=== PATIENT | male | born 1945 | race Caucasian/White ===

== ENCOUNTER 2017-01-16 12:04 | Observation (INO) | payer MEDICARE, OTHER ==
[2017-01-16 12:45] LABS: BLOOD UREA NITROGEN 15 mg/dL (9-20); CHLORIDE 106 mmol/L (98-107); EST GLOMERULAR FILTRATION RATE > 60 mL/min; GLUCOSE 106 mg/dL (70-100); MAGNESIUM 1.8 mg/dL (1.6-2.3); POTASSIUM 4.1 mmol/L (3.5-5.1); SODIUM 140 mmol/L (137-145)
[2017-01-16] MEDS ORDERED: KETOROLAC TROMETHAMINE 30 MG/ML VIAL ONE (12:51)
[2017-01-16 12:58] LABS: HEMATOCRIT 42.6 % (42.0-54.0); MEAN CORPUS. HGB CONCENTRATION 32.8 g/dL (32.0-36.0); MEAN CORPUSCULAR HEMOGLOBIN 32.3 pg (29.0-35.0); PLATELET COUNT 235 X 10^3uL (130-440); RED BLOOD COUNT 4.33 X 10^6uL (4.20-6.10); WHITE BLOOD COUNT 10.2 X 10^3uL (3.9-10.7)
[2017-01-16 12:59] LABS: LYMPHOCYTE % (Manual) 18 % (20.0-40.0); MONOCYTE % (Manual) 8 % (2.0-10.0); NEUTROPHIL % (Manual) 74 % (54.0-75.0); PLATELET ESTIMATE ADEQUATE
[2017-01-16 13:01] LABS: TROPONIN I < 0.012 ng/mL (0.00-0.034)
--- NOTE | 2017-01-16 14:59 | CT REPORT ---
HISTORY: Acute onset chest pain. Elevated d-dimer. Evaluate for pulmonary embolism. PROCEDURE: Contiguous axial images were acquired from the thoracic inlet to the upper abdomen following bolus ad ministration of IV contrast using a CT Angiogram protocol. The patient received 98 cc IV contrast. Th e necessary coronal reformatted and 3-D reconstructed images were also performed. This examination wa s performed using automated exposure control, adjustment of mA or kV according to patient size, and/o r use of iterative reconstruction technique. FINDINGS: Comparison: Comparison is made with chest radiograph of same date. CT ANGIOGRAM: The current study is acquired with good bolus administration. There are no filling defects involving the main pulmonary artery to the level of the lobar and segmental vessels. Mediastinum: Mediastinum shows moderate atherosclerotic disease involving the aortic arch and great vessels. There is no mediastinal lymphadenopathy or mass. There is no intimal flap. Pericardial thickening versus s mall pericardial effusion is noted. Postoperative change is noted consistent with sternotomy. Lungs: Lungs show a small layering left pleural effusion with associated basilar consolidation versus atelec tasis. There is no pneumothorax. Incidentally noted is a calcified 7 mm left lower lobe pulmonary nod ule, best demonstrated on series 6 image 40, consistent with benign granuloma. Upper abdomen: Upper abdomen is within normal limits for age. Chest wall: Chest wall shows no axillary lymphadenopathy. Osseous structures show postoperative change consistent with sternotomy. Degenerative change with anterior osteophyte formation involves the thoracic spine. The left lateral chest wall is not included entirely in the [id number]. 3D Reconstructions: 3-D reconstructions show the pulmonary arteries to be normal in caliber. Results were communicated to the referring care provider concerning these findings at the time of dic tation. IMPRESSION: 1. No acute pulmonary embolism. 2. Left pleural effusion with basilar consolidation. 3. Pericardial thickening versus small pericardial effusion. 4. Incidental senescent and iatrogenic change as above. Final Electronic Signature: This report was electronically signed by Kevin Bello MD on 01/16/2017 2 :57 PM. [facility] / / CURRENT [phone]
[2017-01-16] MEDS ORDERED: HOME MEDICATION LIST NEEDED 1 EA EACH MC ONE (15:10)
[2017-01-16] MEDS ORDERED: NORMAL SALINE ADDVANTAGE 100 ML IV ONE ×2 (15:54→16:00)
[2017-01-16] MEDS ORDERED: CEFTRIAXONE SODIUM ONE (15:54)
[2017-01-16] MEDS ORDERED: cefTRIAXone SODIUM 1,000 MG/10 ML VIAL ONE (16:00)
--- NOTE | 2017-01-16 16:08 | ER NURSING DOCUMENTATION ---
Nurse's Notes [facility] Name:Saeid Conway Age:71 yrs Sex:Male :1945 Arrival Date:01/16/2017 Time:12:04 BedTrauma-C Private MD:Vinicio Eckert Diagnosis:Pneumonia Bacterial;Pleural Effusion, Unspecified;Hypoxia Presentation: 01/16 12:12 Acuity: ALVARO 2 12:20 Presenting complaint: Patient states: Pt began having body aches last night along with rh SOB, lightheadedness and some chest pain. Pt was being seen in the clinic downstairs and was sent up by Dr Carter for an abnormal EKG. Transition of care: [facility]. 12:20 Method Of Arrival: Private Vehicle rh 16:05 AIR CAT ACTIVATION no. Asprin Given Given in ED. Triage Assessment: 12:25 General: Appears in no apparent distress, Behavior is cooperative. General: Reports fatigue for. Pain: Denies pain. EENT: Oral mucosa is moist. Neuro: Level of Consciousness is awake, alert, obeys commands. Cardiovascular: Capillary refill < 3 seconds. Respiratory: Airway is patent Respiratory effort is even, unlabored, Respiratory pattern is regular, symmetrical, Reports shortness of breath cough that is. GI: Abdomen is non- distended Abd is soft and non tender Reports nausea. : No deficits noted. Derm: Skin is intact, is healthy with good turgor, Skin is pink, warm & dry. Historical: - Allergies: No known drug Allergies; - Home Meds: 1. ibuprofen 200 mg oral cap 1 cap every 4 hours as needed 2. Cialis 10 mg oral tab 1 tab once daily 3. lisinopril 10 mg oral tab 1 tab once daily 4. Toprol XL 50 mg oral Tb24 1 tab once daily 5. atorvastatin 20 mg oral tab 1 tab once daily 6. sulfasalazine 500 mg oral tab 1 tab 4 times per day after meals - PMHx: AAA; Hypertension; HIGH CHOLESTEROL; - PSHx: OPEN REPAIR OF AAA; - Tetanus: < 10 years. - Ebola Screening: : Patient negative for fever greater than or equal to 101.5 degrees Fahrenheit, and additional compatible Ebola Virus Disease symptoms. - Immunization history: Flu Vaccine < 1 year. - Social history: Smoking status: Patient states was never smoker of tobacco. Screenin:26 Infectious Disease Risk None. Abuse screen: Denies threats or abuse. Denies injuries rh from another. Nutritional screening: No deficits noted. Assessment: 12:26 See Triage Assessment done by same RN. rh Vital Signs: 12:06 BP 121 / 84; Pulse 116 MON; Resp 18; Temp 100.3(O); Pulse Ox 91% ; Weight 81.19 kg; rh Height 71 in. (180.34 cm); Pain 3/10; 12:38 BP 136 / 71; Pulse 102; Resp 14; Pulse Ox 96% on 2 lpm NC; Pain 1/10; rh 13:00 BP 117 / 70 (auto/); rh 13:01 Pulse 105 MON; Resp 19; Pulse Ox 96% ; rh 13:30 BP 119 / 71 (auto/); rh 13:31 Pulse 98 MON; Resp 12; Pulse Ox 95% ; rh 14:00 BP 120 / 65 (auto/); rh 14:01 Pulse 93 MON; Resp 18; Pulse Ox 97% ; rh 14:56 Pulse 88 MON; Resp 21; Pulse Ox 94% ; rh 15:00 BP 120 / 59 (auto/); rh 15:30 BP 117 / 64 (auto/); rh 15:31 Pulse 89 MON; Resp 17; Pulse Ox 94% ; rh 12:06 Body Mass Index 24.97 (81.19 kg, 180.34 cm) rh ED Course: 12:06 EKG done. (by ED staff). Reviewed by Chintan Medrano MD. rh 12:07 Patient arrived in ED. jl 12:07 Vinicio Eckert is Private Physician. jl 12:08 Inserted peripheral IV: 20 gauge in left antecubital area and blood collected. Oxygen rh Oxygen administration via nasal cannula @ 2L/min. 12:12 Triage completed. rh 12:15 Notified ED Physician of patient's arrival and chief complaint. Dr. Medrano notified. rh 12:15 final finisher forging dies on. Pulse ox on. NIBP on. rh 12:21 Chintan Medrano MD is Attending Physician. 12:27 Valuables Remains with patient Patient has correct armband on for positive rh identification. Placed in gown. Bed in low position. Call light in reach. Side rails up X 1. 12:35 Phillip Flowers RN is Primary Nurse. tg 13:52 Notified ED physician, critical lab value for DDIMER with actual value of 326 New rh orders [facility] 15:15 Marcy Lockwood MD is Admitting Physician. ricardo 15:20 Inserted peripheral IV: 20 gauge in right forearm. tg Administered Medications: 12:35 Drug: Aspirin Chewable Tablet 324 mg; Route: PO; tg 13:12 Follow up: Response: No adverse reaction rh 12:38 Drug: Toradol 30 mg; Route: IVP; Site: left antecubital; rh 13:12 Follow up: Response: No adverse reaction rh 15:46 Drug: Rocephin 1 grams; Route: IVPB; Site: right forearm; rh 16:08 Follow up: IV Status: Infusion continued upon admission rh Outcome: 15:15 Decision to Admit by Provider. 16:05 Admitted to Med/surg accompanied by nurse, via stretcher, with oxygen, with chart. 16:05 Condition: improved 16:05 Discharge Assessment: Patient awake, alert and oriented x 3. No cognitive and/or functional deficits noted. Patient verbalized understanding of disposition instructions. 16:05 Instructed on need to admit 16:07 Patient left the ED. rh Signatures: Phillip Flowers RN RN tg Meyer, John, MD MD jm Norman, David dnn Hofsess, Rachel rh Lietz, Jeff jl
--- NOTE | 2017-01-16 16:08 | ER PHYSICIAN DOCUMENTATION ---
Physician Documentation [facility] Name:Saeid Conway Age:71 yrs Sex:Male :1945 Arrival Date:01/16/2017 Time:12:04 BedTrauma-C Private MD:Vinicio Eckert ED, John Disposition: 01/16/17 15:15 Admit ordered for Marcy Lockwood. Preliminary diagnosis are Pneumonia Bacterial, Pleural Effusion, Unspecified, Hypoxia. - Bed requested for Medical/Surgical. - Condition is Fair. - Problem is new. - Symptoms are unchanged. 23 HR OBS Yes HPI: 01/16 13:43 This 71 yrs old Male presents to ER via Private Vehicle with complaints of jm Chest Pain > 30 y/o, Fever. 13:43 The patient or guardian reports chest pain that is located primarily in the chest jm diffusely. Onset: today. The pain does not radiate. There has been no movement of pain. Associated signs and symptoms: Pertinent positives: dizziness, lightheadedness, nausea. Associated signs and symptoms: Pertinent positives: cough. The chest pain is described as dull. Duration: The patient or guardian reports a single episode, that is still ongoing. Severity of pain: in the emergency department the pain is unchanged. The patient has not experienced similar symptoms in the past. The patient has not recently seen a physician. Pt sent up by clinic for eval of CP and dizziness. Pt feels run down and generally fatigued. Pt has slight cough,, but mostly c/o of body aches, and malaise. . Historical: - Allergies: No known drug Allergies; - Home Meds: 1. ibuprofen 200 mg oral cap 1 cap every 4 hours as needed 2. Cialis 10 mg oral tab 1 tab once daily 3. lisinopril 10 mg oral tab 1 tab once daily 4. Toprol XL 50 mg oral Tb24 1 tab once daily 5. atorvastatin 20 mg oral tab 1 tab once daily 6. sulfasalazine 500 mg oral tab 1 tab 4 times per day after meals - PMHx: AAA; Hypertension; HIGH CHOLESTEROL; - PSHx: OPEN REPAIR OF AAA; - Tetanus: < 10 years. - Ebola Screening: : Patient negative for fever greater than or equal to 101.5 degrees Fahrenheit, and additional compatible Ebola Virus Disease symptoms. - Immunization history: Flu Vaccine < 1 year. - Social history: Smoking status: Patient states was never smoker of tobacco. ROS: 13:45 Constitutional: Negative for body aches, chills, fatigue, malaise. jm 13:45 ENT: Negative for rhinorrhea, sinus congestion, sinus pain, sore throat. 13:45 Cardiovascular: Positive for chest pain. 13:45 Respiratory: Positive for cough, Negative for shortness of breath. 13:45 Abdomen/GI: Negative for abdominal pain, nausea, vomiting, diarrhea. 13:45 MS/extremity: Negative for swelling. 13:45 Skin: Negative for swelling. 13:45 Neuro: Positive for dizziness, Negative for headache. 13:45 Psych: Negative for anxiety, depression. 13:45 All other systems are negative. Exam: 13:46 Constitutional: The patient appears alert, awake. jm 13:46 Eyes: Periorbital structures: appear normal, Conjunctiva: normal. 13:46 ENT: Nose: is normal, Mouth: is normal. 13:46 Neck: ROM/movement: is normal, Lymph nodes: no appreciated lymphadenopathy. 13:46 Cardiovascular: Rate: tachycardic, Rhythm: regular. 13:46 Respiratory: Respirations: normal, Breath sounds: are normal. 13:46 Abdomen/GI: Bowel sounds: normal, Palpation: abdomen is soft and non-tender. 13:46 Musculoskeletal/extremity: DVT Exam: No signs of deep vein thrombosis. Calves: are non-tender, have equal circumference. 13:46 Neuro: Mentation: is normal, Memory: is normal. 13:46 Psych: Behavior/mood is pleasant, cooperative, Affect is calm. Vital Signs: 12:06 BP 121 / 84; Pulse 116 MON; Resp 18; Temp 100.3(O); Pulse Ox 91% ; Weight 81.19 kg; rh Height 71 in. (180.34 cm); Pain 3/10; 12:38 BP 136 / 71; Pulse 102; Resp 14; Pulse Ox 96% on 2 lpm NC; Pain 1/10; rh 13:00 BP 117 / 70 (auto/); rh 13:01 Pulse 105 MON; Resp 19; Pulse Ox 96% ; rh 13:30 BP 119 / 71 (auto/); rh 13:31 Pulse 98 MON; Resp 12; Pulse Ox 95% ; rh 14:00 BP 120 / 65 (auto/); rh 14:01 Pulse 93 MON; Resp 18; Pulse Ox 97% ; rh 14:56 Pulse 88 MON; Resp 21; Pulse Ox 94% ; rh 15:00 BP 120 / 59 (auto/); rh 15:30 BP 117 / 64 (auto/); rh 15:31 Pulse 89 MON; Resp 17; Pulse Ox 94% ; rh 12:06 Body Mass Index 24.97 (81.19 kg, 180.34 cm) MDM: 12:20 Patient medically screened. 15:13 Differential diagnosis: acute pericarditis, anxiety, chest wall pain, pneumonia, jm pulmonary embolus, stable angina, thoracic aortic disection. Patient took aspirin. Data reviewed: vital signs, nurses notes, old medical records, lab test result(s), EKG, radiologic studies, and as a result, I will admit patient. Test interpretation: by ED physician or midlevel provider: plain radiologic studies, ECG. Counseling: I had a detailed discussion with the patient and/or guardian regarding: the historical points, exam findings, and any diagnostic results supporting the discharge/admit diagnosis, lab results, radiology results, the need for further work-up and treatment in the hospital. ECG:. Medication response: The patient's symptoms have improved, Physician consultation: Marcy Lockwood MD regarding admission, and will see patient shortly, later today. Admission orders: after a detailed discussion of the patient's condition and case, the admit orders are written by me. ED course: Pt found to have a PNA w underlying pleural effusion. Blood clx taken. Pt given rocephin and azithro. Pt will need admission as his 02 is 84% when walking and 87% while resting. Dr. Lockwood will see later this afternoon. . 01/16 13:00 Order name: CBC W/ MANUAL DIFFERENTIAL [facility] 01/16 15:51 Interpretation: Normal. 01/16 13:01 Order name: BASIC METABOLIC PANEL [facility] 01/16 13:01 Order name: MAGNESIUM [facility] 01/16 13:01 Order name: TROPONIN I [facility] 01/16 15:51 Interpretation: Normal. 01/16 13:52 Order name: DDIMER [facility] 01/16 15:51 Interpretation: Abnormal: DDIMER 326. 01/16 15:45 Order name: BNP,NT-PRO [facility] 01/16 16:56 Order name: HEPATIC PANEL [facility] 01/16 19:57 Order name: HEPATIC PANEL [facility] 01/16 19:59 Order name: TROPONIN I [facility] 01/17 06:59 Order name: BASIC METABOLIC PANEL [facility] 01/17 07:22 Order name: TROPONIN I [facility] 01/17 10:19 Order name: CBC AUTO DIF, MDIF/RMOR IF IND [facility] 01/17 10:46 Order name: ERYTHROCYTE SEDIMENTATION RATE [facility] 01/17 10:54 Order name: CREATINE KINASE [facility] 01/17 16:33 Order name: BLOOD CULTURE [facility] 01/17 16:33 Order name: BLOOD CULTURE [facility] 01/16 14:59 Order name: CAT SCAN; CHEST ANGIO [id number]; Complete Time: 15:51 [facility] 01/16 16:23 Order name: CXR 2V [id number] [facility] 01/16 12:17 Order name: 12-lead EKG; Complete Time: 12:18 01/16 12:17 Order name: Iv Saline Lock; Complete Time: 12:18 01/16 12:17 Order name: Place Patient On Monitor; Complete Time: 12:18 01/16 12:17 Order name: Pulse Ox Continuous; Complete Time: 12:18 rh EC:13 Rhythm is regular. QRS [place] is Normal. QRS interval is normal. No Q waves. T waves are jm Normal. No ST changes noted. Dispensed Medications: 12:35 Drug: Aspirin Chewable Tablet 324 mg; Route: PO; tg 13:12 Follow up: Response: No adverse reaction rh 12:38 Drug: Toradol 30 mg; Route: IVP; Site: left antecubital; rh 13:12 Follow up: Response: No adverse reaction rh 15:46 Drug: Rocephin 1 grams; Route: IVPB; Site: right forearm; rh 16:08 Follow up: IV Status: Infusion continued upon admission rh Signatures: Phillip Flowers RN RN tg Meyer, John, MD MD jm Hofsess, Rachel rh
[2017-01-16 16:13] LABS: ALBUMIN 4.7 g/dL (3.5-5.0); ALKALINE PHOSPHATASE 54 U/L (38-126); ALT 32 U/L (21-72); AST 34 U/L (17-59); BILIRUBIN, TOTAL 0.7 mg/dL (0.2-1.3); TOTAL PROTEIN 8.1 g/dL (6.3-8.2)
--- NOTE | 2017-01-16 16:21 | RADIOLOGY REPORT ---
HISTORY: Chest pain. COMPARISON: None. FINDINGS: 2 views of the chest obtained. Postoperative changes of previous median sternotomy and cardiac surgery are noted. There is a small e lectronic module projected over the left pulmonary artery. The cardiomediastinal silhouette is not en larged. Trachea is midline. Aortic knob is not enlarged. Pulmonary vascularity is within normal limit s. There is calcified left hilar lymph node. Trachea is midline. Lungs are adequately aerated. No confluent infiltrate or consolidation. No pneumothorax or pleural ef fusion. The thoracic vertebral body heights are maintained. No acute compression deformity. IMPRESSION: 1. Postoperative changes of previous median sternotomy and cardiac surgery. 2. No evidence of congestive heart failure. 3. Calcified left hilar lymph nodes consistent with antecedent granulomatous disease. 4. No acute infiltrate. Final Electronic Signature: This report was electronically signed by Saeid Machado MD on 01/16/2017 4: 19 PM. [facility] / / [facility] [phone]
[2017-01-16] MEDS ORDERED: FUROSEMIDE 20 MG/2 ML VIAL IV SCH (16:30)
[2017-01-16] MEDS ORDERED: AZITHROMYCIN 500 MG in NORMAL SALINE 250 ML IV SCH (17:00)
[2017-01-16] MEDS: GUAIFENESIN ER 600 MG TABLET PO SCH (18:15)
[2017-01-16] MEDS: ACETAMINOPHEN 325 MG TABLET PO PRN (18:15)
[2017-01-16] MEDS ORDERED: SUMATRIPTAN 50 MG TABLET PO PRN (18:27)
[2017-01-16 19:50] LABS: ALBUMIN 4.5 g/dL (3.5-5.0); ALKALINE PHOSPHATASE 54 U/L (38-126); ALT 32 U/L (21-72); AST 27 U/L (17-59); BILIRUBIN, TOTAL 0.7 mg/dL (0.2-1.3); TOTAL PROTEIN 7.6 g/dL (6.3-8.2)
[2017-01-16] MEDS: SULFASALAZINE PO SCH (20:28)
[2017-01-16] MEDS ORDERED: LEVETIRACETAM 500 MG TABLET PO SCH (21:00)
[2017-01-16] MEDS ORDERED: IBUPROFEN 200 MG TABLET PO SCH (21:00)
[2017-01-16] MEDS ORDERED: ATORVASTATIN CALCIUM 10 MG TABLET PO SCH (21:00)
[2017-01-16] MEDS ORDERED: ZOLPIDEM TARTRATE 5 MG TABLET PO SCH (21:00)
[2017-01-17] MEDS: GUAIFENESIN ER 600 MG TABLET PO SCH (06:30)
[2017-01-17 06:44] LABS: BLOOD UREA NITROGEN 22 mg/dL (9-20); CALCIUM 9.4 mg/dL (8.4-10.2); CHLORIDE 104 mmol/L (98-107); EST GLOMERULAR FILTRATION RATE > 60 mL/min; GLUCOSE 76 mg/dL (70-100); POTASSIUM 4.8 mmol/L (3.5-5.1); SODIUM 141 mmol/L (137-145)
[2017-01-17 06:47] VITALS: RESP 12
[2017-01-17] MEDS: ACETAMINOPHEN 325 MG TABLET PO PRN ×2 (07:33→13:14)
--- NOTE | 2017-01-17 07:52 | HISTORY & PHYSICAL ---
History of Present Illness (Marcy Lockwood MD; 01/16/2017 7:17 PM) Patient words: acute fatigue and cardiac history. This am achy all over. The patient is a 71 year old male who presents with fatigue. He has a history of hypertension, hyperlipidemia, aortic valve replacement, and thoracic aortic aneurysm repair who presented to the office today with a 5 day history of extreme exhaustion and a 2-3 day history of fevers, chills, sweats, myalgias, and a dry cough. No runny nose. He has had shortness of breath. He complained of chest pain and tightness, especially with movement last night in bed without radiation. He states that now in the hospital, his chest pain has resolved. No sore throat. No ear pain no abdominal pain. No nausea, vomiting diarrhea. No prior history of pneumonia. No prior history of congestive heart failure or pleural effusions. He is not on home oxygen. Problem List/Past Medical (Marcy Lockwood MD; 01/16/2017 7:24 PM) Patent foramen ovale08/2015: small. Surgical repair not indicated. Aortic valvular [id number]/2016. He is unclear if it was aortic regurgitation or aortic stenosis. Status post aortic valve replacement August 2015. Thoracic aortic [id number]/2016. He is status post open thoracic aortic aneurysm repair. Seizure Disorder (G40.909)10/2016 Diagnosed October 2016 with abnormal EEG. Unknown seizure type. Migraine, Classical (G43.109) HTN (I10) Hyperlipidemia (272.4) (E78.5) Allergies (Marcy Lockwood MD; 01/16/2017 7:31 PM) NKA Family History (Marcy Lockwood MD; 01/16/2017 7:34 PM) Father age 77 congestive heart failure, skin cancer. Mother 69 breast cancer, CVA. Brother 1 64 pancreatic cancer. Brother 2 Healthy. Social History (Marcy Lockwood MD; 01/16/2017 7:33 PM) Marital status Re-. Second marriage. Jun. Number of Children: 4. 5 grandchildren. Current work status Retired. [employer]. Alcohol use 1-2 drinks per day. Tobacco use Former smoker. Briefly smoked in college. Medication History (Marcy Lockwood MD; 01/16/2017 7:30 PM) Aspirin (81MG Tablet DR, 1 Oral daily) Active. Atorvastatin Calcium (20MG Tablet, Oral at bedtime) Active. Keppra (500MG Tablet, Oral at bedtime) Active. Toprol XL (50MG Tablet ER 24HR, Oral at bedtime) Active. Multivitamin Adults (1 Oral daily) Active. SulfaSALAzine (500MG Tablet, 4 Oral two times daily) Active. SUMAtriptan Succinate (50MG Tablet, 1 Oral As needed for migraine) Active. Past Surgical History (Marcy Lockwood MD; 01/16/2017 7:27 PM) Status post back surgery Secondary to ruptured discs. TAA open [id number]/2016 Aortic valve pwshye50/2016 Right inguinal hernia repair Review of Systems (Marcy Lockwood MD; 01/16/2017 7:42 PM) As above. He states that he had had episodes of lightheadedness and dizziness with extreme fatigue for several months. He was seen by cardiology and had a Holter monitor placed which was negative. He then had an implantable monitor placed for 1 year which was also negative. He was then sent to neurology. EEG was quite abnormal. He was at high risk for seizures and Keppra was started. With these episodes of extreme fatigue, he also had increased frequency of his migraines, especially the auras. His neurologist was hoping that the Keppra would treat both the seizures and migraines. However, he still continues to have 4-5 migraines with aura each month. His migraine auras tend to mostly be on the left side. He states he has never had any head imaging. He had a normal heart catheterization prior to his abdominal aortic aneurysm and aortic valve replacement in August 2015. He denies any unintentional weight loss. He has had chronic fatigue since his chest surgeries. No edema. No PND. No orthopnea. He has never had any known seizures. Data: CBC with white blood cell count 10.2. Hemoglobin 14.0, hematocrit 42.6. Platelets 235. D-dimer 326. Basic metabolic panel unremarkable. Troponin negative. BNP 252. LFTs normal. EKG sinus tachycardia 110 left axis deviation nonspecific intraventricular block. Abnormal EKG. Chest x-ray: Postoperative changes. No congestive heart failure. Calcified left hilar lymph nodes consistent with antecedent granulomatous disease. No acute infiltrate. CT angiogram chest: No acute pulmonary embolism. Left pleural effusion with bibasilar consolidation. Pericardial thickening versus small pericardial effusion. Incidental senescent and iatrogenic changes. Vitals (Hailey Fournieryessi Barahona; 01/16/2017 11:37 AM) 01/16/2017 11:37 AM Pulse: 128 (Regular) P.OX: 84% (Room air) just walking to the exam room 01/16/2017 11:35 AM Weight: 179 lb Height: 71in Body Surface Area: 2.01 m Body Mass Index: 24.97 kg/m Temp.: 100.3F(Temporal) Pulse: 120 (Regular) Resp.: 20 (Unlabored) P.OX: 90% (Room air) BP: 108/64 (Sitting, Left Arm, Standard) Physical Exam (Marcy Lockwood MD; 01/16/2017 7:37 PM) The physical exam findings are as follows: Note:General: Awake, alert, in no respiratory distress. HEENT: Atraumatic normocephalic, pupils equal round react to light, extraocular movements intact, sclerae clear. TMs clear. Nares boggy and congested. No bleeding. Oropharynx clear. No exudate or lesions. Neck: Supple, no JVD, no carotid bruits, no lymphadenopathy, no meningismus. Chest: Well-healed midsternal incisional scar. Lungs: Rales left base. Otherwise fairly good aeration throughout and clear. Heart: Distant, regular rate and rhythm without any murmurs rubs or gallops. Abdomen: Soft, nontender, nondistended, good bowel sounds, no masses or hepatosplenomegaly. Extremities: Nontender, no cyanosis, no clubbing, no edema. No palpable cords. Negative Homans. Good dorsalis pedis and posterior tibial pulses. Neurological: Awake, alert, oriented 3, cranial nerves II through XII grossly intact no focal deficits, motor, sensation, and DTRs intact. Assessment & Plan (Marcy Lockwood MD; 01/16/2017 7:47 PM) Pneumonia, bacterial (J15.9) Impression: Even though chest x-ray and CT angiogram did not show pneumonia, he clinically appears to have pneumonia with fevers, chills, sweats, and productive cough. Blood cultures 2 were drawn. Will attempt sputum culture and Gram stain. Continue Rocephin and azithromycin. Oxygen. Incentive spirometer. Respiratory therapy consult. He was admitted to observation. Anticipate discharge tomorrow. Full cor. Pleural effusion, left (J90) Impression: He is responding well to diuresis. We have discussed the risks of unilateral pleural effusion be related to potential underlying malignancy. No mass or lymph nodes are seen on CT angiogram chest. I recommended close follow- up as an outpatient when he goes back on the [place]. I suspect we will not repeat imaging unless his condition worsens as he may be able to be discharged tomorrow. Abnormal EKG (R94.31) Impression: He has an abnormal EKG. I do not have any prior EKGs to compare to. His initial troponin is negative. Repeat 2 more sets of troponin levels. Repeat EKG in the morning. Cardiology consultation. Check echocardiogram. Telemetry. He has had a prior normal cardiac catheterization August 2015. He does not have a known underlying history of congestive heart failure. Hypoxemia (R09.02) Impression: Continue oxygen to keep saturations above 90%. He only smoked briefly in college. No known underlying respiratory diseases. Essential hypertension (I10) Impression: His blood pressures have been stable since admission. Continue metoprolol. Hyperlipidemia, acquired (E78.5) Impression: Continue atorvastatin. Signed by Marcy Lockwood MD (01/16/2017 7:48 PM) CC: Dr. Rico Iniguez. SIRENA
[2017-01-17] MEDS: SULFASALAZINE PO SCH (08:35)
--- NOTE | 2017-01-17 08:38 | PROGRESS NOTE: IM SOAP ---
IM: PN Subjective General: fatigue (His biggest complaint is fatigue. ), no confusion, no good appetite, no diaphoresis, no fever, no chills HEENT: headache (Minor H/As, but no migraines. ) Cardiovascular: no chest pain (Resolved with no recurrence.), no palpitations, no dizziness Respiratory: cough (Minimal. ), no sputum, no wheeze, no SOB Gastrointestinal: no abdominal pain, no nausea, no vomiting Genitourinary: no flank pain Musculoskeletal: no pain, no swelling Neurological: headache (Mild as above.) IM: PN Objective Exam - I&O/Vital Signs I&O: Intake & Output 01/16/17 01/17/17 01/17/17 21:59 05:59 13:59 Intake Total 620 100 Output Total 800 470 Balance -180 -370 Weight 79.832 kg Intake: IV 300 Right Forearm 300 Oral 320 100 Output: Urine 800 470 Other: Urine Appearance Clear Urine Color Yellow Stool Characteristics Soft Voiding Method Urinal Urinal Vital Signs: Last Vital Signs Temp 37.0 C 01/17/17 06:45 Pulse 88 01/17/17 06:55 Resp 12 01/17/17 06:45 BP 128/71 01/17/17 06:45 Pulse Ox 95 01/17/17 06:45 Oxygen Flow Rate 2 Oxygen Delivery Method Nasal Cannula - Constitutional General appearance: Present: average body habitus, cooperative. Absent: severe distress - Head Head exam: Present: atraumatic, normal inspection, normocephalic - Eye Eye exam: Present: EOMI, PERRL - ENT ENT exam: Present: mucous membranes moist - Neck Neck exam: Absent: lymphadenopathy, meningismus - Respiratory Respiratory exam: Present: rales (Fair aeration throughout. ). Absent: respiratory distress, wheezes - Cardiovascular Cardiovascular exam: Present: RRR. Absent: systolic murmur - GI/Abdominal GI/Abdominal exam: Present: normal bowel sounds, soft. Absent: organomegaly, tenderness - Extremities Exam Extremities exam: Absent: calf tenderness, Luisito's Sign, edema - Back Exam Back exam: Absent: CVA tenderness (L), CVA tenderness (R) - Neurological Exam Neurological exam: Present: alert, oriented X3 - Psychiatric Psychiatric exam: Present: normal affect, normal mood - Skin Skin exam: Absent: rash - Allied Health Notes Allied health notes reviewed: nursing - Lab Labs: Laboratory Last Values WBC 10.2 X 10^3uL (3.9-10.7) 01/16/17 12:15 RBC 4.33 X 10^6uL (4.20-6.10) 01/16/17 12:15 Hgb 14.0 g/dL (14.0-18.0) 01/16/17 12:15 Hct 42.6 % (42.0-54.0) 01/16/17 12:15 MCV 98.0 fL (80.0-100.0) D 01/16/17 12:15 MCH 32.3 pg (29.0-35.0) 01/16/17 12:15 MCHC 32.8 g/dL (32.0-36.0) 01/16/17 12:15 RDW Not Reportable 01/16/17 12:15 Plt Count 235 X 10^3uL (130-440) 01/16/17 12:15 MPV Not Reportable 01/16/17 12:15 Total Counted 100 01/16/17 12:15 Neutrophils % Cancelled 01/16/17 12:15 Neutrophils % (Manual) 74 % (54.0-75.0) 01/16/17 12:15 Lymphocytes % Cancelled 01/16/17 12:15 Lymphocytes % (Manual) 18 % (20.0-40.0) L 01/16/17 12:15 Monocytes % (Manual) 8 % (2.0-10.0) 01/16/17 12:15 Eosinophils % Cancelled 01/16/17 12:15 Basophils % Cancelled 01/16/17 12:15 Neutrophils # Cancelled 01/16/17 12:15 Lymphocytes # Cancelled 01/16/17 12:15 Monocytes Cancelled 01/16/17 12:15 Monocytes # Cancelled 01/16/17 12:15 Eosinophils # Cancelled 01/16/17 12:15 Basophils # Cancelled 01/16/17 12:15 Platelet Estimate Adequate 01/16/17 12:15 D-Dimer 326 ng/mL H* 01/16/17 12:15 Sodium 141 mmol/L (137-145) 01/17/17 05:00 Potassium 4.8 mmol/L (3.5-5.1) 01/17/17 05:00 Chloride 104 mmol/L (98-107) 01/17/17 05:00 Carbon Dioxide 24 mmol/L (22-30) 01/17/17 05:00 BUN 22 mg/dL (9-20) H 01/17/17 05:00 Creatinine 0.9 mg/dL (0.7-1.3) 01/17/17 05:00 GFR Calculation > 60 mL/min 01/17/17 05:00 Glucose 76 mg/dL (70-100) 01/17/17 05:00 Calcium 9.4 mg/dL (8.4-10.2) 01/17/17 05:00 Magnesium 1.8 mg/dL (1.6-2.3) 01/16/17 12:15 Total Bilirubin 0.7 mg/dL (0.2-1.3) 01/16/17 15:38 Direct Bilirubin Not Reportable 01/16/17 15:38 AST 34 U/L (17-59) 01/16/17 15:38 ALT 32 U/L (21-72) 01/16/17 15:38 Alkaline Phosphatase 54 U/L (38-126) 01/16/17 15:38 Troponin I < 0.012 ng/mL (0.00-0.034) 01/17/17 05:00 NT-Pro-B Natriuret Pep 252 pg/mL (<125) H 01/16/17 12:15 Total Protein 8.1 g/dL (6.3-8.2) 01/16/17 15:38 Albumin 4.7 g/dL (3.5-5.0) 01/16/17 15:38 Assessment and Plan - Date of Encounter Date of Encounter: 01/17/17 (1) Pneumonia Status: Acute Assessment and plan: CXR and CTA chest do not actually show pneumonia. He presented with F/C/S, fatigue, and mild cough. Continue Rocephin, azithromycin, O2, and IS. Current Visit: Yes (2) Pleural effusion Status: Acute Assessment and plan: LLL moderate pleural effusion. He has diuresed well overnight. Appreciate cardiology consultation. Stress echocardiogram today. He will need close F/U in [place] to ensure moderate pleural effusion has resolved. Current Visit: Yes (3) Hypoxemia Status: Acute Assessment and plan: Appreciate RT help. Will wean O2 as tolerated. Current Visit: Yes (4) Abnormal EKG Status: Acute Assessment and plan: Appreciate Dr. Iniguez's fine evaluation. Stress echocardiogram today. Current Visit: Yes (5) Hypertension Status: Chronic Assessment and plan: BPs have been stable on metoprolol. Current Visit: Yes (6) Hyperlipidemia Status: Chronic Assessment and plan: Continue statin. Current Visit: Yes (7) Migraine Status: Chronic Assessment and plan: Followed closely by neurology in [place]. Continue sumatriptan. Current Visit: Yes (8) Seizure disorder Status: Chronic Assessment and plan: Stable. Followed by neurology. Continue Keppra. Current Visit: Yes - Time Spent With Patient Total time spent with greater than 50% in coordination of care (as documented) at patient's floor/unit and/or counseling patient: 25 - 35 minutes (Long d/w Dr. Iniguez and staff as well.) Quality Questions - VTE Prophylaxis Assessment VTE Present on Admission?: No Patient at risk for venous thromboembolism?: Yes VTE Risk Level: High Risk Pharmaceutical VTE prophylaxis contraindication reason: N/A- VTE prophylaxsis ordered Mechanical VTE prophylaxis contraindication reason: N/A- VTE prophylaxsis ordered (1) Pneumonia Qualifiers: Pneumonia type: due to unspecified organism Laterality: left Lung location: lower lobe of lung Qualified Code(s): J18.1 - Lobar pneumonia, unspecified organism (5) Hypertension Qualifiers: Hypertension type: essential hypertension Qualified Code(s): I10 - Essential (primary) hypertension (6) Hyperlipidemia Qualifiers: Hyperlipidemia type: unspecified Qualified Code(s): E78.5 - Hyperlipidemia, unspecified (7) Migraine Qualifiers: Migraine type: with aura Status migrainosus presence: without status migrainosus Intractability: not intractable Qualified Code(s): G43.109 - Migraine with aura, not intractable, without status migrainosus
[2017-01-17] MEDS ORDERED: FISH OIL/OMEGA-3 FATTY ACIDS 1,000 MG CAPSULE PO SCH (09:00)
[2017-01-17] MEDS ORDERED: AZITHROMYCIN 250 MG TABLET PO SCH (09:00)
[2017-01-17] MEDS ORDERED: MULTIVITAMINS THERAPEUTIC 1 TABLET PO SCH (09:00)
[2017-01-17] MEDS ORDERED: SULFASALAZINE PO SCH ×2 (10:00→21:00)
[2017-01-17 10:17] LABS: HEMATOCRIT 41.4 % (42.0-54.0); HEMOGLOBIN 13.8 g/dL (14.0-18.0); LYMPHOCYTES 11.2 % (20.0-40.0); MEAN CORPUS. HGB CONCENTRATION 33.3 g/dL (32.0-36.0); MEAN CORPUSCULAR HEMOGLOBIN 33.2 pg (29.0-35.0); MEAN PLATELET VOLUME 7.9 fL (7.4-10.4); MONOCYTES 6.8 % (2.0-10.0); NEUTROPHILS 80.5 % (54.0-75.0); PLATELET COUNT 178 X 10^3uL (130-440); RED BLOOD COUNT 4.16 X 10^6uL (4.20-6.10); RED CELL DISTRIBUTION WIDTH 12.3 % (11.5-14.5); WHITE BLOOD COUNT 11.9 X 10^3uL (3.9-10.7)
[2017-01-17 10:18] LABS: BASOPHILS 0.3 % (0.0-2.0); EOSINOPHILS 1.2 % (0.0-6.0); EOSINOPHILS# 0.1 X 10^3uL (0.0-0.4); LYMPHOCYTES# 1.3 X 10^3uL (0.8-3.8); MONOCYTES# 0.8 X 10^3uL (0.2-1.0); NEUTROPHILS# 9.6 X 10^3uL (2.6-6.7)
[2017-01-17 11:30] VITALS: BP 138/79; PULSE 93; TEMP 97.1; O2SAT 93
--- NOTE | 2017-01-17 13:29 | DC SUMMARY: IM Note ---
Discharge Summary: IM/Peds Provider: Date of Admission: 01/16/17 Admitting Provider: VANDA HAUSER MD Attending Provider: VANDA HAUSER MD Discharging Provider: VANDA HAUSER MD Primary Care Provider: Discharge Date: 01/17/17 - Diagnosis (1) Pneumonia Status: Acute Qualifiers: Pneumonia type: due to unspecified organism Laterality: left Lung location: lower lobe of lung Qualified Code(s): J18.1 - Lobar pneumonia, unspecified organism (2) Pleural effusion Status: Acute (3) Hypoxemia Status: Resolved (4) Abnormal EKG Status: Acute (5) Hypertension Status: Chronic Qualifiers: Hypertension type: essential hypertension Qualified Code(s): I10 - Essential (primary) hypertension (6) Hyperlipidemia Status: Chronic Qualifiers: Hyperlipidemia type: unspecified Qualified Code(s): E78.5 - Hyperlipidemia , unspecified (7) Migraine Status: Chronic Qualifiers: Migraine type: with aura Status migrainosus presence: without status migrainosus Intractability: not intractable Qualified Code(s): G43.109 - Migraine with aura, not intractable, without status migrainosus (8) Seizure disorder Status: Chronic - Time Spent with Patient Total time spent providing and/or coordinating discharge services: Time with patient DS: Greater than 30 minutes Discharge - Patient/Caregiver Discharge Instructions Activity Level: As tolerated. I [place]. Diet: Regular. Follow up: VANDA HAUSER MD [ACTIVE (Staff Physician)] - 01/31/17 9:00 am Overall discharge status: patient is progressing back to baseline Print Language: BULGARIAN Home Medications: Azithromycin [Zithromax*] 250 mg PO DAILY #3 Care Plan Goals: Pneumonia Discharge Instructions If antibiotics are prescribed continue taking them until the course is complete, even if you are feeling better! Continue to change position, cough and deep breathe hourly while awake. Utilize your incentive spirometer minimally ten times during each wakeful hour Stay hydrated - 8 or more glasses of water will help thin secretions so you may cough them up. Do not use medication to suppress your cough -unless it is dry, painful, and interferes with your sleep. Continue to ambulate at least 3 times daily as tolerated. A warm compress for 15-20 minutes at a time may help relieve chest discomfort. Continue to get plenty of rest until your symptoms subside. Reasons to call 911: Chest pain Difficulty breathing Blue lips or finger nails Call your physician if: You have a fever above 101.5F Yellow, green, bloody, or a foul odor with your sputum Greater than normal mucus production Nausea with vomiting or diarrhea Disposition: HOME, SELF-CARE Discharge Summary Data - Medication History Medication History: Home Medications Atorvastatin Calcium [Lipitor*] 20 mg PO HS 01/16/17 Fish Oil/[place]-3 Fatty Acids 1,000 mg PO DAILY 01/16/17 Glucosamine/Chondroitin Sulf A [Glucosamine Chondroitin Cap] 1 each PO BID 01/16 Ibuprofen [Ibuprofen*] 400 mg PO HS 01/16/17 Ibuprofen [Ibuprofen*] 400 mg PO TID PRN 01/16/17 Levetiracetam [Keppra*] 500 mg PO HS 01/16/17 Multivitamins,Therapeutic [Thera] 1 udtab PO DAILY 01/16/17 Sulfasalazine [Azulfidine] 2,000 mg PO BID 01/16/17 Sumatriptan Succinate [Imitrex] 50 mg PO PRN PRN 01/16/17 aspirin EC [Aspirin EC*] 81 mg PO DAILY 01/16/17 metoprolol SUCC ER [Toprol Xl*] 50 mg PO HS 01/16/17 Inpatient Medications 01/16/17 18:27 Sumatriptan [Imitrex] 50 mg PO PRN PRN 01/16/17 21:00 Atorvastatin Calcium [Lipitor] 20 mg PO HS Ibuprofen [Motrin] 400 mg PO HS Levetiracetam [Keppra] 500 mg PO HS Zolpidem Tartrate [Ambien] 10 mg PO HS metoprolol SUCC ER [topROL XL] 50 mg PO HS 01/17/17 09:00 Fish Oil/Columb[place]-3 Fatty Acids 1,000 mg PO DAILY Multivitamins,Therapeutic [Thera] 1 tab PO DAILY aspirin EC [Ecotrin 81 mg] 81 mg PO DAILY 01/17/17 10:00 Sulfasalazine [Azulfidine] 2,000 mg PO BID Procedures and tests throughout hospitalization: Completed Lab Orders 01/17/17 09:42 CPK [CREATINE KINASE] [CHEM] Urgent 01/17/17 09:43 Sed Rate [ERYTHROCYTE SEDIMENTATION RATE] [HEM] Urgent Pending Orders 01/16/17 15:00 BLOOD CULTURE [BC] Routine BLOOD CULTURE [BC] Routine 01/16/17 18:27 Sumatriptan [Imitrex] 50 mg PO PRN PRN 01/16/17 19:50 SPUTUM CULTURE AND GRAM STAIN [RM] Routine Respiratory Therapy Consult [RT] Routine 01/16/17 19:51 Incentive Spirometry Q1H Teach: Incentive Spirometry . 01/16/17 21:00 Atorvastatin Calcium [Lipitor] 20 mg PO HS Ibuprofen [Motrin] 400 mg PO HS Levetiracetam [Keppra] 500 mg PO HS Zolpidem Tartrate [Ambien] 10 mg PO HS metoprolol SUCC ER [topROL XL] 50 mg PO HS 01/17/17 08:45 Stress Echo [Echocardiogram w/ Stress Test] [CARDIO] Routine 01/17/17 09:00 Fish Oil/[place]-3 Fatty Acids 1,000 mg PO DAILY Multivitamins,Therapeutic [Thera] 1 tab PO DAILY aspirin EC [Ecotrin 81 mg] 81 mg PO DAILY 01/17/17 10:00 Sulfasalazine [Azulfidine] 2,000 mg PO BID 01/18/17 05:00 CPK [CREATINE KINASE] [CHEM] AMDRAW ERYTHROCYTE SEDIMENTATION RATE [HEM] AMDRAW Labs on day of discharge: Labs from last 24 hours 01/17/17 01/17/17 01/17/17 09:43 09:42 05:00 WBC 11.9 H RBC 4.16 L Hgb 13.8 L Hct 41.4 L MCV 100.0 MCH 33.2 MCHC 33.3 RDW 12.3 D Plt Count 178 MPV 7.9 Neutrophils % 80.5 H Lymphocytes % 11.2 L Eosinophils % 1.2 Basophils % 0.3 Neutrophils # 9.6 H Lymphocytes # 1.3 Monocytes 6.8 Monocytes # 0.8 Eosinophils # 0.1 Basophils # 0.0 ESR 52 H Sodium 141 Potassium 4.8 Chloride 104 Carbon Dioxide 24 BUN 22 H Creatinine 0.9 GFR Calculation > 60 Glucose 76 Calcium 9.4 Creatine Kinase 51 L Troponin I 01/17/17 01/16/17 05:00 18:00 WBC RBC Hgb Hct MCV MCH MCHC RDW Plt Count MPV Neutrophils % Lymphocytes % Eosinophils % Basophils % Neutrophils # Lymphocytes # Monocytes Monocytes # Eosinophils # Basophils # ESR Sodium Potassium Chloride Carbon Dioxide BUN Creatinine GFR Calculation Glucose Calcium Creatine Kinase Troponin I < 0.012 < 0.012 - Impressions Zan was admitted for left pleural effusion and probable pneumonia. He had several days of extreme fatigue, F/C/S, myalgias, and cough. However, both CXR and CTA chest did not actually show infiltrate. He was treated with Rocephin, azithromycin, O2, incentive spirometer, and respiratory consult. He improved overnight. He underwent cardiology evaluation was negative with negative stress echocardiogram. Stress echo did show intermittent RBBB with no ischemia; small pericardial effusion with thickening of the pericardial space; and ascending aortic aneurysm measuring 43mm. Chest pain is noncardiac in etiology. 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 Zan will need very close F/U as an outpatient for resolution of his left pleural effusion. We have discussed the possibility of underlying malignancy as a cause of the unilateral pleural effusion. No lymphadenopathy seen on CTA chest. He will not require oxygen upon discharge as he is stable on RA. However, he appears to still be very weak and I recommended further stay in the hospital. he plans to go on a trip with his brother to [place]. We discussed that it would be best that [place]. He declines and would like to be discharged. We have reviewed strict precautions for follow-up in the ED if his symptoms worsen. He states that he will not be returning to [place] until March. Therefore, he will follow-up with me in 10-14 days and also with cardiology. He understands all of the discharge planning. IM: Discharge Physical Exam - I&O/Vital Signs I&O: Intake & Output 01/16/17 01/17/17 01/17/17 21:59 05:59 13:59 Intake Total 620 100 Output Total 800 470 Balance -180 -370 Weight 79.832 kg Intake: IV 300 Right Forearm 300 Oral 320 100 Output: Urine 800 470 Other: Urine Appearance Clear Clear Urine Color Yellow Yellow Stool Characteristics Soft Soft Voiding Method Urinal Urinal Urinal Vital Signs: Last Vital Signs Temp 36.2 C L 01/17/17 11:00 Pulse 93 H 01/17/17 11:00 Resp 12 01/17/17 11:00 BP 138/79 01/17/17 11:00 Pulse Ox 93 01/17/17 11:00 Oxygen Flow Rate 1 Oxygen Delivery Method Nasal Cannula - Constitutional General appearance: Present: average body habitus, cooperative. Absent: severe distress - Head Head exam: Present: atraumatic, normal inspection, normocephalic - Eye Eye exam: Present: EOMI, PERRL - ENT ENT exam: Present: mucous membranes moist - Neck Neck exam: Absent: lymphadenopathy, meningismus - Respiratory Respiratory exam: Present: rales (Fair aeration throughout. ). Absent: respiratory distress, wheezes - Cardiovascular Cardiovascular exam: Present: RRR. Absent: systolic murmur - GI/Abdominal GI/Abdominal exam: Present: normal bowel sounds, soft. Absent: organomegaly, tenderness - Extremities Exam Extremities exam: Absent: calf tenderness, Luisito's Sign, edema - Back Exam Back exam: Absent: CVA tenderness (L), CVA tenderness (R) - Neurological Exam Neurological exam: Present: alert, oriented X3 - Psychiatric Psychiatric exam: Present: normal affect, normal mood - Skin Skin exam: Absent: rash - Allied Health Notes Allied health notes reviewed: nursing
[2017-01-17] MEDS ORDERED: cefTRIAXone SODIUM 1,000 MG in NORMAL SALINE MINI-BAG+ 100 ML IV SCH (16:00)
== END 2017-01-17 14:05 | disposition home or self-care (01) ==
LOC: ER 12:04 → IN 16:09
PROVIDERS: ADMIT Family Medicine; ATTEND Family Medicine
DX: J18.1 Lobar pneumonia, unspecified organism (principal); R94.31 Abnormal electrocardiogram [ECG] [EKG]; I10 Essential (primary) hypertension; E78.5 Hyperlipidemia, unspecified; G43.909 Migraine, unspecified, not intractable, without status migrainosus; G40.909 Epilepsy, unspecified, not intractable, without status epilepticus; Z95.2 Presence of prosthetic heart valve; Z79.899 Other long term (current) drug therapy
CPT/HCPCS: 71020; 71275; 80048; 80076; 82550; 83735; 83880; 84484; 85007; 85025; 85027; 85379; 85651; 87040; 93005; 93010; 93041; 93351; 94760; 96365; 96366; 96375; 99217; 99220; 99285; G0378; J0456; J0696; J1885; J1940; J7050; Q0144